=== PATIENT | male | born 1995 | race Caucasian/White ===

== ENCOUNTER 2025-02-11 22:53 | Emergency (ER) | payer MEDICAID ==
[~2025-02-11] VITALS: Ht 165.1 cm; Wt 72.6 kg
[2025-02-11 23:06] VITALS: BP 134/70; TEMP 98.2; O2SAT 96
[2025-02-11] MEDS ORDERED: ACETAMINOPHEN ES 500 MG TABLET ONE (23:31)
[2025-02-11] MEDS: ACETAMINOPHEN ES 500 MG TABLET PO ONE (23:32)
== END 2025-02-12 03:40 | disposition home or self-care (01) ==
LOC: ER 22:55
DX: S09.90XA Unspecified injury of head, initial encounter (principal); F10.129 Alcohol abuse with intoxication, unspecified; X58.XXXA Exposure to other specified factors, initial encounter; Y93.89 Activity, other specified; Y92.89 Other specified places as the place of occurrence of the external cause; Y99.8 Other external cause status; Y90.9 Presence of alcohol in blood, level not specified
CPT/HCPCS: 70450-TC